=== PATIENT | male | born 1960 | race Caucasian/White ===

== ENCOUNTER 2020-06-01 07:08 | Day surgery (SDC) | payer BC ==
[~2020-06-01 07:08] MED LIST: Lactated Ringers 1,000 ML IV SCH
--- NOTE | 2020-06-01 08:21 | PCM.PREANE ---
Preanesthetic Assessment - Anesthesia/Transfusion/Family Hx Anesthesia History: No Prior Anesthesia Family History of Anesthesia Reaction: No Transfusion History: No Prior Transfusion(s) - Review of Systems General: No Symptoms Pulmonary: No Symptoms Cardiovascular: No Symptoms Gastrointestinal: No Symptoms Neurological: No Symptoms Other: Reports: None - Physical Assessment NPO Status Date: 05/31/20 Vital Signs: Last Vital Signs Temp 96.1 F L 06/01/20 07:30 Pulse 65 06/01/20 07:30 Resp 16 06/01/20 07:30 BP 159/106 H 06/01/20 07:30 Pulse Ox 98 06/01/20 07:30 Height: 5 ft 11 in Weight: 63.957 kg ASA Class: 3 Mental Status: Alert & Oriented x3 Airway Class: Mallampati = 2 Dentition: Reports: Edentulous ROM/Head Extension: Full Lungs: Clear to Auscultation, Normal Respiratory Effort Cardiovascular: Regular Rate, Regular Rhythm - Allergies Allergies/Adverse Reactions: Allergies Allergy/AdvReac Type Severity Reaction Status Date / Time No Known Allergies Allergy Verified 06/01/20 07:59 - Blood Blood Available: No - Anesthesia Plan Pre-Op Medication Ordered: None - Acknowledgements Anesthesia Type Planned: General Anesthesia (tiva) Pt an Appropriate Candidate for the Planned Anesthesia: Yes Alternatives and Risks of Anesthesia Discussed w Pt/Guardian: Yes Pt/Guardian Understands and Agrees with Anesthesia Plan: Yes Additional Comments: PMH: poorly controlled htn with diastolic bps 105-110, smoker, gerd, heavy alcohol use PreAnesthesia Questionnaire HEENT History: Reports: Other (See Below) Other HEENT History: wears glasses, has top and bottom dentures Cardiovascular History: Reports: Hypertension Respiratory History: Reports: None Gastrointestinal History: Reports: Other (See Below) Other Gastrointestinal History: occasional heartburn "if I eat chocolate" Genitourinary History: Reports: Renal Calculus Musculoskeletal History: Reports: Fracture Other Musculoskeletal History: fx fingers Neurological History: Reports: None Psychiatric History: Reports: None Endocrine/Metabolic History: Reports: None Hematologic History: Reports: None Immunologic History: Reports: None Oncologic (Cancer) History: Reports: None Dermatologic History: Reports: None - Past Surgical History Head Surgeries/Procedures: Reports: None HEENT Surgical History: Reports: None Cardiovascular Surgical History: Reports: None Respiratory Surgical History: Reports: None GI Surgical History: Reports: None Male Surgical History: Reports: None Endocrine Surgical History: Reports: None Neurological Surgical History: Reports: None Musculoskeletal Surgical History: Reports: Other (See Below) Other Musculoskeletal Surgeries/Procedures:: excision of cyst from left wrist Oncologic Surgical History: Reports: None Dermatological Surgical History: Reports: None - SUBSTANCE USE Tobacco Use Status *Q: Current Every Day Tobacco User Tobacco Use Within Last Twelve Months: Cigarettes Days Per Week of Alcohol Use: 7 Number of Drinks Per Day: 4 Total Drinks Per Week: 28 - HOME MEDS Home Medications: Home Meds Metoprolol Tartrate 50 mg PO DAILY 08/19/16 [History] Nitroglycerin 0.4 mg SL ASDIRECTED PRN 05/26/20 [History] - CURRENT (IN HOUSE) MEDS Current Meds: Current Medications Lactated Ringer's (Ringers, Lactated) 1,000 mls @ 125 mls/hr IV ASDIRECTED DAE Last Admin: 06/01/20 07:58 Dose: 125 mls/hr Documented by:
[2020-06-01] MEDS ORDERED: Propofol 200 MG/20 ML SDV ONE (09:01)
--- NOTE | 2020-06-01 10:05 | PCM.OPNOTE ---
- General Post-Op/Procedure Note Date of Surgery/Procedure: 06/01/20 Operative Procedure(s): Colonoscopy with polypectomies Findings: Small polyps at 30 and 10 cm Diverticulosis dictation number: [id number] Pre Op Diagnosis: screening colonscopy Post-Op Diagnosis: Small polyps at 30 and 10 cm. Diverticulosis Primary Surgeon: Quang Umana Pathology: polyps Complications: None Condition: Good Free Text/Narrative:: Intake & Output 05/31/20 06/01/20 06/01/20 22:59 06:59 14:59 Intake Total 650 Balance 650
--- NOTE | 2020-06-01 10:12 | PCM.POSTAN ---
POST ANESTHESIA ASSESSMENT - MENTAL STATUS Mental Status: Alert, Oriented - VITAL SIGNS Vital Signs: Last Vital Signs Temp 98.4 F 06/01/20 09:48 Pulse 62 06/01/20 09:58 Resp 12 06/01/20 09:58 BP 128/98 H 06/01/20 09:58 Pulse Ox 100 06/01/20 09:58 - RESPIRATORY Respiratory Status: Respiratory Rate WNL, Airway Patent, O2 Saturation Stable - CARDIOVASCULAR CV Status: Pulse Rate WNL, Blood Pressure Stable - GASTROINTESTINAL GI Status: No Symptoms - POST OP HYDRATION Hydration Status: Adequate & Stable
--- NOTE | 2020-06-01 10:12 | PCM48HPAN ---
Post Anesthesia Note - EVALUATION WITHIN 48HRS OF ANESTHETIC Vital Signs in Normal Range: Yes Patient Participated in Evaluation: Yes Respiratory Function Stable: Yes Airway Patent: Yes Cardiovascular Function Stable: Yes Hydration Status Stable: Yes Pain Control Satisfactory: Yes Nausea and Vomiting Control Satisfactory: Yes Mental Status Recovered: Yes Vital Signs: Last Vital Signs Temp 98.4 F 06/01/20 09:48 Pulse 62 06/01/20 09:58 Resp 12 06/01/20 09:58 BP 128/98 H 06/01/20 09:58 Pulse Ox 100 06/01/20 09:58
[2020-06-01 10:44] VITALS: BP 153/96; PULSE 61
--- NOTE | 2020-06-01 12:57 | OR ---
SURGEON: IMAN FRAUSTO MD DATE OF PROCEDURE: 06/01/2020 PREOPERATIVE DIAGNOSIS: Screening colonoscopy. POSTOPERATIVE DIAGNOSES: 1. Small polyps at 30 and 10 cm. 2. Both right and left-sided diverticulosis. 3. Minimal internal hemorrhoids. PROCEDURES PERFORMED: 1. Colonoscopy. 2. Cold biopsy polypectomy. PRIMARY SURGEON: Iman Frausto MD ANESTHESIA: With anesthesiologist. EXTENT OF COLONOSCOPY: To the cecum. LIMITATIONS: None. BOWEL PREP: Good. WITHDRAWAL TIME: 8 minutes. REASON FOR PROCEDURE: The patient is a pleasant 59-year-old gentleman. He has never had a colonoscopy before. He does have a family history of colon cancer. Denies any blood in his stool. PROCEDURE IN DETAIL: Physical examination was performed. The major risks and benefits associated with the procedure were explained to the patient in detail. The patient verbalized understanding and agreement of the same. The patient was then connected to appropriate monitoring device and IV started. EKG, pulse, pulse oximetry, blood pressure, and capnography were monitored throughout the entire procedure. Continuous oxygenation and sedation were provided by the anesthesiologist. The patient was placed in left lateral decubitus position, sedation was began. After adequate sedation was achieved, digital rectal exam was performed. No rectal masses or polyps were felt. Now, a well-lubricated Olympus colonoscope was entered into the rectum and advanced under direct visualization to the level of the cecum. Cecum was identified was by both visual and anatomic landmarks. Photographs were taken of the cecal cap and the appendiceal orifice. The scope was then slowly withdrawn in somewhat circular fashion looking at the color, texture, anatomy, and integrity of the mucosa from the cecum to the canal. The patient had a good bowel prep. He has had some residual liquid stools, suctioned and irrigated out for good look at the mucosa. He had one or two pieces of kernel of corn too, but overall good bowel prep. The patient did have diverticulosis on both the right and left side of the colon. The patient had a small polyp at about 30 cm, which was removed with cold biopsy polypectomy. It appeared to be completely removed, good hemostasis. He had another polyp at about 10 cm. This was also removed with cold biopsy polypectomy. Again, it looked completely removed and good hemostasis. Scope was retroflexed in the rectum. He had some minimal internal hemorrhoids, noninflamed. Scope was then completely removed and the procedure was terminated. ENDOSCOPIC DIAGNOSES: 1. Both right and left-sided diverticulosis. 2. Small polyps at about 30 and 10 cm, removed. 3. Noninflamed internal hemorrhoids. RECOMMENDATIONS: Followup colonoscopy will depend on pathology, but most likely another one in 5 years or sooner if he develops signs and symptoms such as change in bowel habits or blood in his stool. FREDDY / MYKE /[id number]
== END 2020-06-01 10:23 | disposition home or self-care (01) ==
LOC: MW.SDS 07:08
PROVIDERS: ATTEND Surgery
DX: Z12.11 Encounter for screening for malignant neoplasm of colon (principal); D12.6 Benign neoplasm of colon, unspecified; K57.30 Diverticulosis of large intestine without perforation or abscess without bleeding; K64.8 Other hemorrhoids; I10 Essential (primary) hypertension; F17.210 Nicotine dependence, cigarettes, uncomplicated; E55.9 Vitamin D deficiency, unspecified; K21.9 Gastro-esophageal reflux disease without esophagitis; Z80.0 Family history of malignant neoplasm of digestive organs; Z79.899 Other long term (current) drug therapy; Z98.890 Other specified postprocedural states
CPT/HCPCS: 45380; J2704; J7120; 00812

== ENCOUNTER 2022-03-11 09:11 | Emergency (ER) | payer BC ==
[2022-03-11] MEDS ORDERED: Ondansetron 4 MG/2 ML SDV IVPUSH ONE (10:53)
[2022-03-11] MEDS ORDERED: Sodium Chloride 0.9% 10 ML Syringe FLUSH PRN (10:53)
[2022-03-11] MEDS ORDERED: Sodium Chloride 0.9% 2.5 ML Syringe FLUSH PRN (10:53)
[2022-03-11 12:00] LABS: CARBON DIOXIDE,CO2 27.5 mmol/L (21.0-32.0); POTASSIUM,K 3.9 mmol/L (3.5-5.1)
[2022-03-11 12:14] LABS: CORONAVIRUS COVID-19 NAA NEGATIVE (NEGATIVE); INFLUENZA A NAA NEGATIVE (NEGATIVE); INFLUENZA B NAA NEGATIVE (NEGATIVE)
[2022-03-11] MEDS ORDERED: Iopamidol 755 MG/ML 500 ML Multipack Bottle IVPUSH STA (13:24)
[2022-03-11 14:52] VITALS: BP 156/112; PULSE 53
== END 2022-03-11 14:52 | disposition home or self-care (01) ==
LOC: MW.ED 09:11
DX: K52.9 Noninfective gastroenteritis and colitis, unspecified (principal); K29.50 Unspecified chronic gastritis without bleeding; I10 Essential (primary) hypertension; Z72.0 Tobacco use; Z79.899 Other long term (current) drug therapy; Z20.822 Contact with and (suspected) exposure to COVID-19
CPT/HCPCS: 0240U; 36415; 74177; 80053; 81003; 83735; 84484; 85025; 85610; 99284; J3490; Q9967